=== PATIENT | male | born 1945 | race African-American/Black ===

== ENCOUNTER 2022-05-16 10:18 | Inpatient (IN) | payer MEDICARE, MEDICAID ==
[~2022-05-16] VITALS: Ht 167.6 cm; Wt 76.2 kg
[~2022-05-16 10:18] MED LIST: BICA50TA48 PO; FINA5TAB11 PO; ONDA8TAB13 MT; TAMS-11 MT
[2022-05-16] MEDS ORDERED: SODIUM CHLORIDE 0.9% 1,000 ML IV ONE (10:45)
[2022-05-16 11:18] LABS: BASOPHILS % 1.4 % (0.0-2.0); EOSINOPHILS % 0.6 % (0.0-5.0); LYMPHOCYTES % 36.3 % (20.0-50.0); MEAN CORPUSCULAR HEMOGLOBIN 25.4 pg (28.0-32.0); MEAN CORPUSCULAR VOLUME 81.9 fL (80.0-94.0); MEAN PLATELET VOLUME 7.6 fl (7.4-10.4); NEUTROPHILS % 54.7 % (40.0-76.0); PLATELET 224 x1000/uL (130-400); RED BLOOD CELL COUNT 2.17 mill/uL (4.7-6.1); RED CELL DISTRIBUTION WIDTH 23.2 % (11.6-14.6)
[2022-05-16 11:25] LABS: HEMOGLOBIN. 5.5 g/dL (14.0-18.0)
[2022-05-16 11:26] LABS: HEMATOCRIT. 17.8 % (42.0-52.0)
[2022-05-16 11:29] LABS: CHLORIDE 112 mEq/L (98-107)
[2022-05-16 12:25] LABS: PLATELET ESTIMATE NORMAL
[2022-05-16] MEDS ORDERED: ONDANSETRON HCL 4MG/2ML INJ IV PRN (17:45)
[2022-05-16 17:50] VITALS: BP 128/59
[2022-05-16 20:00] VITALS: BP 125/59
[2022-05-16] MEDS ORDERED: NALOXONE HCL 0.4MG/ML VIAL IV PRN (21:00)
[2022-05-16] MEDS: HYDROCODONE/ACETAMINOPHEN 10/325MG TABLET PO PRN (21:23)
[2022-05-16] MEDS: ACETAMINOPHEN 325MG TABLET PO PRN (23:31)
[2022-05-16 23:55] VITALS: BP 119/57
[2022-05-17] VITALS (10 sets, daily range): BP systolic 121–151; BP diastolic 55–76
[2022-05-17] MEDS ORDERED: METO-396 PO (01:45)
[2022-05-17] MEDS ORDERED: [UNRECOGNIZED DRUG - CODE] PO (01:45)
[2022-05-17] MEDS ORDERED: PNEUMOCOCCAL 23-VAL P-SAC VAC 0.5 ML IM ONE (02:15)
[2022-05-17] MEDS: HYDROCODONE/ACETAMINOPHEN 10/325MG TABLET PO PRN ×2 (03:30→21:27)
[2022-05-17 07:11] LABS: CLARITY URINE TURBID (CLEAR); COLOR URINE RED (YELLOW); KETONES URINE NEGATIVE (NEGATIVE); LEUKOCYTE ESTERASE URINE 3+ (NEGATIVE); NITRITE URINE POSITIVE (NEGATIVE); OCCULT BLOOD URINE 1+ (NEGATIVE); PROTEIN URINE 1+ (NEGATIVE); SPECIFIC GRAVITY URINE 1.031 (1.005-1.030); UROBILINOGEN URINE 0.2 E.U./dL (0.2-1.0)
[2022-05-17 07:21] LABS: CHLORIDE 111 mEq/L (98-107)
[2022-05-17] MEDS: SODIUM CHLORIDE 0.45% 1,000 ML IV SCH ×2 (07:29→20:40)
[2022-05-17 07:39] LABS: BASOPHILS % 0.9 % (0.0-2.0); EOSINOPHILS % 1.1 % (0.0-5.0); HEMATOCRIT. 24.3 % (42.0-52.0); HEMOGLOBIN. 8.1 g/dL (14.0-18.0); MEAN CORPUSCULAR HEMOGLOBIN 27.3 pg (28.0-32.0); MEAN CORPUSCULAR VOLUME 81.8 fL (80.0-94.0); MEAN PLATELET VOLUME 7.7 fl (7.4-10.4); MONOCYTES % 7.7 % (2.0-8.0); NEUTROPHILS % 56.3 % (40.0-76.0); PLATELET 168 x1000/uL (130-400); RED BLOOD CELL COUNT 2.97 mill/uL (4.7-6.1)
[2022-05-17] MEDS: CEFTRIAXONE 1,000 MG in DEXTROSE 5% WATER 50 ML IV SCH (14:57)
[2022-05-17] MEDS: FINASTERIDE 5MG TABLET PO SCH (14:57)
[2022-05-17] MEDS: TAMSULOSIN HCL 0.4MG SR CAPSULE PO SCH (14:58)
[2022-05-17] MEDS ORDERED: IOHEXOL-300 100 ML BOTTLE ONE (20:20)
[2022-05-18] VITALS: BP 130/70
[2022-05-18 04:00] VITALS: BP 127/74
[2022-05-18 07:26] LABS: BASOPHILS % 1.1 % (0.0-2.0); EOSINOPHILS % 1.5 % (0.0-5.0); HEMATOCRIT. 23.2 % (42.0-52.0); HEMOGLOBIN. 7.7 g/dL (14.0-18.0); LYMPHOCYTES % 27.2 % (20.0-50.0); MEAN CORPUSCULAR HEMOGLOBIN 27.1 pg (28.0-32.0); MEAN CORPUSCULAR VOLUME 81.4 fL (80.0-94.0); MEAN PLATELET VOLUME 7.3 fl (7.4-10.4); MONOCYTES % 7.2 % (2.0-8.0); PLATELET 148 x1000/uL (130-400); RED BLOOD CELL COUNT 2.86 mill/uL (4.7-6.1); RED CELL DISTRIBUTION WIDTH 19.1 % (11.6-14.6)
[2022-05-18 07:39] LABS: CHLORIDE 110 mEq/L (98-107)
[2022-05-18 08:00] VITALS: BP 125/68
[2022-05-18] MEDS ORDERED: LACTULOSE 20G/30ML UDC PO SCH (08:00)
[2022-05-18] MEDS: DOCUSATE SODIUM 250MG CAPSULE PO SCH (08:40)
[2022-05-18] MEDS: TAMSULOSIN HCL 0.4MG SR CAPSULE PO SCH (08:41)
[2022-05-18] MEDS: FINASTERIDE 5MG TABLET PO SCH (08:41)
[2022-05-18] MEDS: HYDROCODONE/ACETAMINOPHEN 10/325MG TABLET PO PRN ×2 (08:41→20:21)
[2022-05-18] MEDS: SODIUM CHLORIDE 0.45% 1,000 ML IV SCH ×2 (08:42→23:20)
[2022-05-18] MEDS: ACETAMINOPHEN 325MG TABLET PO PRN (11:54)
[2022-05-18 12:00] VITALS: BP 108/53
[2022-05-18] MEDS: CEFTRIAXONE 1,000 MG in DEXTROSE 5% WATER 50 ML IV SCH (12:30)
[2022-05-18 16:00] VITALS: BP 138/67
[2022-05-18 20:00] VITALS: BP 117/54
[2022-05-19] VITALS: BP 126/62
[2022-05-19 04:00] VITALS: BP 124/70
[2022-05-19] MEDS: HYDROCODONE/ACETAMINOPHEN 10/325MG TABLET PO PRN ×2 (04:15→16:37)
[2022-05-19 07:33] LABS: HEMATOCRIT. 21.4 % (42.0-52.0); HEMOGLOBIN. 7.2 g/dL (14.0-18.0); MEAN CORPUSCULAR HEMOGLOBIN 27.2 pg (28.0-32.0); MEAN CORPUSCULAR VOLUME 80.8 fL (80.0-94.0); MEAN PLATELET VOLUME 7.8 fl (7.4-10.4); PLATELET 152 x1000/uL (130-400); RED BLOOD CELL COUNT 2.65 mill/uL (4.7-6.1); RED CELL DISTRIBUTION WIDTH 18.8 % (11.6-14.6)
[2022-05-19 08:00] VITALS: BP 128/58
[2022-05-19 08:12] LABS: CHLORIDE 108 mEq/L (98-107)
[2022-05-19] MEDS: FINASTERIDE 5MG TABLET PO SCH (09:11)
[2022-05-19] MEDS: TAMSULOSIN HCL 0.4MG SR CAPSULE PO SCH (09:11)
[2022-05-19] MEDS: DOCUSATE SODIUM 250MG CAPSULE PO SCH (09:12)
[2022-05-19 12:00] VITALS: BP 110/55
[2022-05-19] MEDS: CEFTRIAXONE 1,000 MG in DEXTROSE 5% WATER 50 ML IV SCH (13:14)
[2022-05-19] MEDS: SODIUM CHLORIDE 0.45% 1,000 ML IV SCH (13:15)
[2022-05-19 16:00] VITALS: BP 113/60
[2022-05-19 16:58] LABS: NUCLEATED RED BLOOD CELLS 3 /100 WBC; PLATELET ESTIMATE NORMAL
[2022-05-19 20:00] VITALS: BP 110/48
[2022-05-20] VITALS: BP 97/44
[2022-05-20 04:00] VITALS: BP 125/65
[2022-05-20] MEDS: HYDROCODONE/ACETAMINOPHEN 10/325MG TABLET PO PRN ×3 (04:06→22:34)
[2022-05-20] MEDS: SODIUM CHLORIDE 0.45% 1,000 ML IV SCH ×3 (04:07→22:33)
[2022-05-20 07:02] LABS: EOSINOPHILS % 2.7 % (0.0-5.0); HEMATOCRIT. 21.4 % (42.0-52.0); HEMOGLOBIN. 7.2 g/dL (14.0-18.0); LYMPHOCYTES % 24.4 % (20.0-50.0); MEAN CORPUSCULAR HEMOGLOBIN 27.4 pg (28.0-32.0); MEAN CORPUSCULAR VOLUME 80.8 fL (80.0-94.0); MEAN PLATELET VOLUME 7.7 fl (7.4-10.4); MONOCYTES % 8.3 % (2.0-8.0); NEUTROPHILS % 63.6 % (40.0-76.0); PLATELET 157 x1000/uL (130-400); RED BLOOD CELL COUNT 2.64 mill/uL (4.7-6.1); RED CELL DISTRIBUTION WIDTH 19.2 % (11.6-14.6)
[2022-05-20 07:08] LABS: CHLORIDE 110 mEq/L (98-107)
[2022-05-20 08:00] VITALS: BP 136/65
[2022-05-20] MEDS: TAMSULOSIN HCL 0.4MG SR CAPSULE PO SCH (08:12)
[2022-05-20] MEDS: FINASTERIDE 5MG TABLET PO SCH (08:12)
[2022-05-20] MEDS: DOCUSATE SODIUM 250MG CAPSULE PO SCH (08:12)
[2022-05-20] MEDS ORDERED: PROPOFOL 200MG/20ML VIAL IV ONE (12:38)
[2022-05-20] MEDS ORDERED: DEXAMETHASONE 4MG/ML 1ML VIAL ONE (12:39)
[2022-05-20] MEDS ORDERED: ONDANSETRON HCL 4MG/2ML INJ ONE (12:39)
[2022-05-20] MEDS ORDERED: METOCLOPRAMIDE HCL 10MG/2ML VIAL ONE (12:39)
[2022-05-20] MEDS ORDERED: MIDAZOLAM HCL 2 MG/2 ML VIAL ONE (12:39)
[2022-05-20] MEDS ORDERED: FENTANYL CITRATE/PF 50MCG/ML 2ML VIAL ONE ×2 (12:39→13:29)
[2022-05-20] MEDS: CEFTRIAXONE 1,000 MG in DEXTROSE 5% WATER 50 ML IV SCH (13:30)
[2022-05-20] MEDS ORDERED: CEFAZOLIN SODIUM 1000MG/VIAL ONE (13:47)
[2022-05-20] MEDS ORDERED: ONDANSETRON HCL 4MG/2ML INJ IV PRN (14:00)
[2022-05-20] MEDS ORDERED: FENTANYL CITRATE/PF 50MCG/ML 2ML VIAL IV PRN (14:00)
[2022-05-20 16:52] VITALS: BP 158/72
[2022-05-20 20:00] VITALS: BP 153/76
[2022-05-21] VITALS: BP 156/82
[2022-05-21] MEDS ORDERED: ONDANSETRON HCL 4MG/2ML INJ IV PRN (01:15)
[2022-05-21 04:00] VITALS: BP 155/77
[2022-05-21 08:20] LABS: BASOPHILS % 0.8 % (0.0-2.0); EOSINOPHILS % 0.5 % (0.0-5.0); LYMPHOCYTES % 12.1 % (20.0-50.0); MEAN CORPUSCULAR HEMOGLOBIN 26.6 pg (28.0-32.0); MEAN CORPUSCULAR VOLUME 80.5 fL (80.0-94.0); MEAN PLATELET VOLUME 7.8 fl (7.4-10.4); MONOCYTES % 6.8 % (2.0-8.0); NEUTROPHILS % 79.8 % (40.0-76.0); PLATELET 188 x1000/uL (130-400); RED BLOOD CELL COUNT 3.15 mill/uL (4.7-6.1); RED CELL DISTRIBUTION WIDTH 19.6 % (11.6-14.6)
[2022-05-21 08:29] LABS: HEMATOCRIT. 25.3 % (42.0-52.0); HEMOGLOBIN. 8.4 g/dL (14.0-18.0)
[2022-05-21 08:30] VITALS: BP 115/70
[2022-05-21 08:47] LABS: CHLORIDE 104 mEq/L (98-107)
[2022-05-21] MEDS: DOCUSATE SODIUM 250MG CAPSULE PO SCH (10:28)
[2022-05-21] MEDS: HYDROCODONE/ACETAMINOPHEN 10/325MG TABLET PO PRN ×2 (10:29→18:15)
[2022-05-21] MEDS: TAMSULOSIN HCL 0.4MG SR CAPSULE PO SCH (10:32)
[2022-05-21] MEDS: FINASTERIDE 5MG TABLET PO SCH (10:33)
[2022-05-21 12:00] VITALS: BP 134/68
[2022-05-21 16:00] VITALS: BP 128/68
[2022-05-21] MEDS: CEFTRIAXONE 1,000 MG in DEXTROSE 5% WATER 50 ML IV SCH (16:01)
[2022-05-21] MEDS ORDERED: LACTULOSE 20G/30ML UDC PO NR (17:15)
[2022-05-21] MEDS: SODIUM CHLORIDE 0.45% 1,000 ML IV SCH (18:00)
[2022-05-21 20:00] VITALS: BP 92/54
[2022-05-21] MEDS: METOPROLOL TARTRATE 25MG TABLET PO SCH (21:00)
[2022-05-22] VITALS: BP 104/60
[2022-05-22 04:00] VITALS: BP 123/50
[2022-05-22 08:00] VITALS: BP 118/54
[2022-05-22] MEDS: FINASTERIDE 5MG TABLET PO SCH (09:17)
[2022-05-22] MEDS: ACETAMINOPHEN 325MG TABLET PO PRN (09:18)
[2022-05-22] MEDS: TAMSULOSIN HCL 0.4MG SR CAPSULE PO SCH (09:18)
[2022-05-22] MEDS: DOCUSATE SODIUM 250MG CAPSULE PO SCH (09:18)
[2022-05-22] MEDS: METOPROLOL TARTRATE 25MG TABLET PO SCH ×2 (09:19→20:41)
[2022-05-22 12:00] VITALS: BP 122/52
[2022-05-22] MEDS: BICALUTAMIDE 50 MG TABLET PO SCH (13:16)
[2022-05-22] MEDS: LEVOFLOXACIN 500MG TABLET PO SCH (13:16)
[2022-05-22] MEDS: CEFTRIAXONE 1,000 MG in DEXTROSE 5% WATER 50 ML IV SCH (13:17)
[2022-05-22 20:00] VITALS: BP 107/56
[2022-05-22] MEDS: SODIUM CHLORIDE 0.45% 1,000 ML IV SCH (23:39)
[2022-05-22 23:57] VITALS: BP 120/56
[2022-05-23] VITALS (12 sets, daily range): BP systolic 113–133; BP diastolic 50–65
[2022-05-23] MEDS: ACETAMINOPHEN 325MG TABLET PO PRN ×3 (04:49→20:07)
[2022-05-23 06:45] LABS: MEAN CORPUSCULAR HEMOGLOBIN 26.2 pg (28.0-32.0); MEAN CORPUSCULAR VOLUME 80.9 fL (80.0-94.0); MEAN PLATELET VOLUME 7.6 fl (7.4-10.4); PLATELET 181 x1000/uL (130-400); RED BLOOD CELL COUNT 2.57 mill/uL (4.7-6.1)
[2022-05-23 07:50] LABS: HEMATOCRIT. 20.8 % (42.0-52.0); HEMOGLOBIN. 6.7 g/dL (14.0-18.0)
[2022-05-23 08:47] LABS: CHLORIDE 110 mEq/L (98-107)
[2022-05-23] MEDS: DOCUSATE SODIUM 250MG CAPSULE PO SCH (09:32)
[2022-05-23] MEDS: TAMSULOSIN HCL 0.4MG SR CAPSULE PO SCH (09:33)
[2022-05-23] MEDS: BICALUTAMIDE 50 MG TABLET PO SCH (09:33)
[2022-05-23] MEDS: FINASTERIDE 5MG TABLET PO SCH (09:33)
[2022-05-23] MEDS: METOPROLOL TARTRATE 25MG TABLET PO SCH ×2 (09:33→20:07)
[2022-05-23] MEDS ORDERED: NALOXONE HCL 0.4MG/ML VIAL IV PRN (13:00)
[2022-05-23] MEDS ORDERED: HYDROCODONE/ACETAMINOPHEN 5/325MG TABLET PO PRN (13:00)
[2022-05-23] MEDS: LEVOFLOXACIN 500MG TABLET PO SCH (13:21)
[2022-05-23 16:59] LABS: PLATELET ESTIMATE NORMAL
[2022-05-23] MEDS: SODIUM CHLORIDE 0.45% 1,000 ML IV SCH (20:07)
[2022-05-24] VITALS (7 sets, daily range): BP systolic 112–140; BP diastolic 45–64
[2022-05-24 03:28] LABS: CHLORIDE 111 mEq/L (98-107)
[2022-05-24 03:33] LABS: BASOPHILS % 0.8 % (0.0-2.0); EOSINOPHILS % 3.7 % (0.0-5.0); HEMATOCRIT. 24.8 % (42.0-52.0); HEMOGLOBIN. 8.4 g/dL (14.0-18.0); LYMPHOCYTES % 27.9 % (20.0-50.0); MEAN CORPUSCULAR HEMOGLOBIN 27.9 pg (28.0-32.0); MEAN CORPUSCULAR VOLUME 82.6 fL (80.0-94.0); MEAN PLATELET VOLUME 7.4 fl (7.4-10.4); MONOCYTES % 6.2 % (2.0-8.0); NEUTROPHILS % 61.4 % (40.0-76.0); PLATELET 178 x1000/uL (130-400); RED CELL DISTRIBUTION WIDTH 19.2 % (11.6-14.6)
[2022-05-24] MEDS ORDERED: POLYETHYLENE GLYCOL 3350 (17GM) 1 DOSE PACK PO SCH (07:00)
[2022-05-24] MEDS: SODIUM CHLORIDE 0.45% 1,000 ML IV SCH (08:30)
[2022-05-24] MEDS: DOCUSATE SODIUM 250MG CAPSULE PO SCH (09:26)
[2022-05-24] MEDS: METOPROLOL TARTRATE 25MG TABLET PO SCH (09:27)
[2022-05-24] MEDS: TAMSULOSIN HCL 0.4MG SR CAPSULE PO SCH (09:27)
[2022-05-24] MEDS: FINASTERIDE 5MG TABLET PO SCH (09:28)
[2022-05-24] MEDS: BICALUTAMIDE 50 MG TABLET PO SCH (09:28)
[2022-05-24] MEDS: LEVOFLOXACIN 500MG TABLET PO SCH (12:32)
[2022-05-24] MEDS ORDERED: HYDR-4009 MT (12:56)
[2022-05-24] MEDS ORDERED: METO25TA6 PO (12:56)
[2022-05-24] MEDS ORDERED: FINA5TAB11 PO (12:56)
[2022-05-24] MEDS ORDERED: BICA50TA48 PO (12:56)
[2022-05-24] MEDS ORDERED: TAMS-11 PO (12:56)
== END 2022-05-24 20:00 | disposition home health service (06) | DRG 715 ==
LOC: ER 10:18 → 6WST 14:04 → EDBEDREQ 14:14 → EDBEDREQTM 14:14 → ENRESERV 15:04
PROVIDERS: ADMIT Internal Medicine; ATTEND Internal Medicine
PROC: 30233N1 Transfusion of Nonautologous Red Blood Cells into Peripheral Vein, Percutaneous Approach (ICD-10-PCS; principal; 2022-05-16)
PROC: F13 Physical Rehabilitation and Diagnostic Audiology, Diagnostic Audiology, Hearing Assessment (ICD-10-PCS; 2022-05-20)
PROC: 0TCB8ZZ Extirpation of Matter from Bladder, Via Natural or Artificial Opening Endoscopic (ICD-10-PCS; 2022-05-20)
PROC: 0W3R8ZZ Control Bleeding in Genitourinary Tract, Via Natural or Artificial Opening Endoscopic (ICD-10-PCS; 2022-05-20)
DX: C61 Malignant neoplasm of prostate (principal); E44.1 Mild protein-calorie malnutrition; N39.0 Urinary tract infection, site not specified; G90.8 Other disorders of autonomic nervous system; R31.0 Gross hematuria; Z20.822 Contact with and (suspected) exposure to COVID-19; D64.9 Anemia, unspecified; N40.1 Benign prostatic hyperplasia with lower urinary tract symptoms; I10 Essential (primary) hypertension; E87.8 Other disorders of electrolyte and fluid balance, not elsewhere classified; Z68.27 Body mass index [BMI] 27.0-27.9, adult; Z85.46 Personal history of malignant neoplasm of prostate; Z90.79 Acquired absence of other genital organ(s)
CPT/HCPCS: 36415; 71045; 72131; 74178; 80048; 80053; 81003; 82962; 84153; 84484; 85014; 85018; 85025; 86850; 86900; 86920; 87426; 90732; 93005; 97161; 97165; 99291; C9803; J0690; J0696; J1100; J2250; J2405; J2704; J2765; J3010; J7030; J7060; J7120; P9016; Q9967; G0103

== ENCOUNTER 2022-10-04 11:29 | Inpatient (IN) | payer MEDICARE, MEDICAID ==
[~2022-10-04] VITALS: Ht 165.1 cm; Wt 66.7 kg
[~2022-10-04 11:29] MED LIST changes: +HYDR-4009 MT; +LEVO-65 MT; +METO25TA6 PO; +METR-167 MT; -ONDA8TAB13 MT; +[UNRECOGNIZED DRUG - CODE] PO
[2022-10-04] MEDS ORDERED: SODIUM CHLORIDE 0.9% 1,000 ML IV ONE (12:30)
[2022-10-04 13:09] LABS: BASOPHILS % 1.3 % (0.0-2.0); EOSINOPHILS % 0.5 % (0.0-5.0); HEMATOCRIT. 30.1 % (42.0-52.0); HEMOGLOBIN. 9.8 g/dL (14.0-18.0); LYMPHOCYTES % 32.9 % (20.0-50.0); MEAN CORPUSCULAR HEMOGLOBIN 26.8 pg (28.0-32.0); MEAN CORPUSCULAR VOLUME 82.3 fL (80.0-94.0); MONOCYTES % 5.8 % (2.0-8.0); NEUTROPHILS % 59.5 % (40.0-76.0); RED BLOOD CELL COUNT 3.66 mill/uL (4.7-6.1); RED CELL DISTRIBUTION WIDTH 24.8 % (11.6-14.6)
[2022-10-04 13:20] LABS: CHLORIDE 103 mEq/L (98-107)
[2022-10-04 13:30] LABS: PLATELET 265 x1000/uL (130-400)
[2022-10-04] MEDS ORDERED: IOHEXOL-300 100 ML BOTTLE ONE (18:11)
[2022-10-04 19:04] LABS: CLARITY URINE TURBID (CLEAR); COLOR URINE BLOODY (YELLOW); KETONES URINE TRACE (NEGATIVE); PROTEIN URINE TRACE (NEGATIVE); SPECIFIC GRAVITY URINE 1.034 (1.005-1.030)
[2022-10-04 19:05] LABS: LEUKOCYTE ESTERASE URINE 3+ (NEGATIVE); NITRITE URINE POSITIVE (NEGATIVE); OCCULT BLOOD URINE 4+ (NEGATIVE); UROBILINOGEN URINE 0.2 E.U./dL (0.2-1.0)
[2022-10-04] MEDS ORDERED: MORPHINE SULFATE 4 MG/ML CPJ (NOT FOR IM USE) IV ONE (20:15)
[2022-10-05] MEDS ORDERED: IPRATROPIUM/ALBUTEROL 0.5-3(2.5)MG/3ML NEB HHN PRN
[2022-10-05] MEDS ORDERED: LORAZEPAM 0.5MG TABLET PO PRN
[2022-10-05] MEDS ORDERED: SODIUM CHLORIDE 0.9% 500 ML IV ONE
[2022-10-05] MEDS ORDERED: ONDANSETRON HCL 4MG/2ML INJ IV PRN
[2022-10-05] MEDS ORDERED: ACETAMINOPHEN 325MG TABLET PO PRN
[2022-10-05] MEDS ORDERED: GUAIFENESIN 200MG/10ML SUGAR FREE UDC PO PRN
[2022-10-05] MEDS: SODIUM CHLORIDE 0.9% 1,000 ML IV SCH ×2 (00:47→16:57)
[2022-10-05] MEDS ORDERED: CEFTRIAXONE 1 G PREMIX 50 ML IV SCH (01:00)
[2022-10-05 02:05] VITALS: BP 140/38
[2022-10-05 04:00] VITALS: BP 114/54
[2022-10-05 07:17] LABS: CHLORIDE 106 mEq/L (98-107)
[2022-10-05 08:00] VITALS: BP 118/50
[2022-10-05 10:13] LABS: HEMATOCRIT. 28.1 % (42.0-52.0); HEMOGLOBIN. 9.3 g/dL (14.0-18.0); MEAN CORPUSCULAR HEMOGLOBIN 26.6 pg (28.0-32.0); MEAN CORPUSCULAR VOLUME 80.5 fL (80.0-94.0); MEAN PLATELET VOLUME 6.6 fl (7.4-10.4); PLATELET 234 x1000/uL (130-400)
[2022-10-05 11:53] VITALS: BP 108/48
[2022-10-05 12:59] LABS: NUCLEATED RED BLOOD CELLS 1 /100 WBC
[2022-10-05 13:00] LABS: PLATELET ESTIMATE NORMAL
[2022-10-05] MEDS ORDERED: NALOXONE HCL 0.4MG/ML VIAL IV PRN (15:30)
[2022-10-05 15:46] VITALS: BP 115/48
[2022-10-05 16:17] LABS: TOTAL IRON BINDING CAPACITY 405 ug/dL (250-450)
[2022-10-05 16:44] LABS: VITAMIN B12 SERUM 405 pg/mL (211-911)
[2022-10-05] MEDS: PANTOPRAZOLE SODIUM 40 MG/VIAL IV SCH (16:45)
[2022-10-05] MEDS: HYDROCORTISONE ACETATE 25MG SUPP PR SCH ×2 (16:46→22:13)
[2022-10-05] MEDS: DOCUSATE SODIUM 250MG CAPSULE PO SCH (16:46)
[2022-10-05] MEDS: POLYETHYLENE GLYCOL 3350 (17GM) 1 DOSE PACK PO SCH (16:46)
[2022-10-05 17:49] LABS: FERRITIN 70 ng/mL (22-322)
[2022-10-05 20:00] VITALS: BP 113/49
[2022-10-05] MEDS ORDERED: HEMORRHOIDAL SUPP PR SCH (21:00)
[2022-10-05] MEDS: ACETAMINOPHEN 325MG TABLET PO PRN (22:14)
[2022-10-05] MEDS: HYDROCODONE/ACETAMINOPHEN 5/325MG TABLET PO PRN (22:20)
[2022-10-06] MEDS: ACETAMINOPHEN 325MG TABLET PO PRN (02:15)
[2022-10-06] MEDS: PANTOPRAZOLE SODIUM 40 MG/VIAL IV SCH ×2 (02:16→17:11)
[2022-10-06] MEDS: CEFTRIAXONE 1,000 MG in DEXTROSE 5% WATER 50 ML IV SCH (02:28)
[2022-10-06 06:08] LABS: BASOPHILS % 0.9 % (0.0-2.0); EOSINOPHILS % 1.1 % (0.0-5.0); HEMATOCRIT. 24.3 % (42.0-52.0); HEMOGLOBIN. 8.1 g/dL (14.0-18.0); LYMPHOCYTES % 24.8 % (20.0-50.0); MEAN CORPUSCULAR HEMOGLOBIN 27.2 pg (28.0-32.0); MEAN CORPUSCULAR VOLUME 81.4 fL (80.0-94.0); MEAN PLATELET VOLUME 6.9 fl (7.4-10.4); MONOCYTES % 8.8 % (2.0-8.0); NEUTROPHILS % 64.4 % (40.0-76.0); PLATELET 196 x1000/uL (130-400); RED BLOOD CELL COUNT 2.98 mill/uL (4.7-6.1); RED CELL DISTRIBUTION WIDTH 23.9 % (11.6-14.6)
[2022-10-06 06:17] LABS: CHLORIDE 108 mEq/L (98-107)
[2022-10-06 08:00] VITALS: BP 98/49
[2022-10-06] MEDS: POLYETHYLENE GLYCOL 3350 (17GM) 1 DOSE PACK PO SCH (08:46)
[2022-10-06] MEDS: DOCUSATE SODIUM 250MG CAPSULE PO SCH ×2 (08:47→17:11)
[2022-10-06] MEDS: HYDROCORTISONE ACETATE 25MG SUPP PR SCH ×2 (08:47→22:34)
[2022-10-06 11:26] LABS: CARCINO EMBRYONIC ANTIGEN 5.8 ng/ml
[2022-10-06 11:51] LABS: PROSTRATE SPECIFIC AG TOTAL 1544.53 ng/mL (0.0-4.0)
[2022-10-06 12:00] VITALS: BP 117/53
[2022-10-06] MEDS: SODIUM CHLORIDE 0.9% 1,000 ML IV SCH (12:46)
[2022-10-06 16:00] VITALS: BP 108/48
[2022-10-06 20:00] VITALS: BP 123/55
[2022-10-06] MEDS: HYDROCODONE/ACETAMINOPHEN 5/325MG TABLET PO PRN (22:34)
[2022-10-07] VITALS: BP 127/58
[2022-10-07] MEDS: CEFTRIAXONE 1,000 MG in DEXTROSE 5% WATER 50 ML IV SCH (02:27)
[2022-10-07] MEDS: PANTOPRAZOLE SODIUM 40 MG/VIAL IV SCH ×2 (02:28→16:17)
[2022-10-07] MEDS: SODIUM CHLORIDE 0.9% 1,000 ML IV SCH ×2 (02:30→18:40)
[2022-10-07 04:00] VITALS: BP 128/67
[2022-10-07 06:36] LABS: BASOPHILS % 0.6 % (0.0-2.0); EOSINOPHILS % 1.5 % (0.0-5.0); HEMATOCRIT. 22.8 % (42.0-52.0); HEMOGLOBIN. 7.6 g/dL (14.0-18.0); LYMPHOCYTES % 25.4 % (20.0-50.0); MEAN CORPUSCULAR HEMOGLOBIN 26.8 pg (28.0-32.0); MEAN CORPUSCULAR VOLUME 80.2 fL (80.0-94.0); MEAN PLATELET VOLUME 6.7 fl (7.4-10.4); MONOCYTES % 8.3 % (2.0-8.0); NEUTROPHILS % 64.2 % (40.0-76.0); PLATELET 198 x1000/uL (130-400); RED BLOOD CELL COUNT 2.85 mill/uL (4.7-6.1); RED CELL DISTRIBUTION WIDTH 23.9 % (11.6-14.6)
[2022-10-07 06:51] LABS: CHLORIDE 108 mEq/L (98-107)
[2022-10-07 08:00] VITALS: BP 124/55
[2022-10-07] MEDS: HYDROCORTISONE ACETATE 25MG SUPP PR SCH ×2 (09:04→21:58)
[2022-10-07] MEDS: DOCUSATE SODIUM 250MG CAPSULE PO SCH ×2 (09:04→16:17)
[2022-10-07] MEDS: POLYETHYLENE GLYCOL 3350 (17GM) 1 DOSE PACK PO SCH (09:04)
[2022-10-07 12:00] VITALS: BP 109/54
[2022-10-07] MEDS: BICALUTAMIDE 50 MG TABLET PO SCH (12:43)
[2022-10-07 16:00] VITALS: BP 123/57
[2022-10-07] MEDS ORDERED: ALBUTEROL (0.083%) 2.5MG/3ML NEB HHN PRN (16:45)
[2022-10-07] MEDS ORDERED: IPRATROPIUM BROMIDE (0.02%) 0.5MG/2.5ML NEB HHN PRN (16:45)
[2022-10-07 20:00] VITALS: BP 113/54
[2022-10-08] VITALS: BP 111/57
[2022-10-08] MEDS: CEFTRIAXONE 1,000 MG in DEXTROSE 5% WATER 50 ML IV SCH (01:55)
[2022-10-08] MEDS: PANTOPRAZOLE SODIUM 40 MG/VIAL IV SCH ×2 (02:17→15:15)
[2022-10-08 04:00] VITALS: BP 129/58
[2022-10-08 04:55] LABS: CHLORIDE 108 mEq/L (98-107)
[2022-10-08 05:29] LABS: BASOPHILS % 0.7 % (0.0-2.0); EOSINOPHILS % 2.3 % (0.0-5.0); HEMATOCRIT. 23.9 % (42.0-52.0); HEMOGLOBIN. 7.9 g/dL (14.0-18.0); LYMPHOCYTES % 30.5 % (20.0-50.0); MEAN CORPUSCULAR HEMOGLOBIN 26.6 pg (28.0-32.0); MEAN CORPUSCULAR VOLUME 80.3 fL (80.0-94.0); MEAN PLATELET VOLUME 7.2 fl (7.4-10.4); MONOCYTES % 8.7 % (2.0-8.0); NEUTROPHILS % 57.8 % (40.0-76.0); PLATELET 202 x1000/uL (130-400); RED BLOOD CELL COUNT 2.98 mill/uL (4.7-6.1); RED CELL DISTRIBUTION WIDTH 23.8 % (11.6-14.6)
[2022-10-08 08:00] VITALS: BP 117/53
[2022-10-08] MEDS: HYDROCORTISONE ACETATE 25MG SUPP PR SCH ×2 (09:00→21:00)
[2022-10-08] MEDS: POLYETHYLENE GLYCOL 3350 (17GM) 1 DOSE PACK PO SCH (09:00)
[2022-10-08] MEDS: BICALUTAMIDE 50 MG TABLET PO SCH (09:42)
[2022-10-08] MEDS: DOCUSATE SODIUM 250MG CAPSULE PO SCH ×2 (09:57→17:00)
[2022-10-08 12:22] VITALS: BP 124/58
[2022-10-08 16:00] VITALS: BP 113/56
[2022-10-08] MEDS ORDERED: SORBITOL 70% SOLN 30ML PO NR ×2 (16:00→20:00)
[2022-10-08] MEDS ORDERED: METOCLOPRAMIDE HCL 10MG/2ML VIAL IV NR (16:30)
[2022-10-08] MEDS ORDERED: BISACODYL 5MG TABLET PO NR ×2 (16:30→20:30)
[2022-10-08 20:00] VITALS: BP 110/60
[2022-10-08] MEDS: SODIUM CHLORIDE 0.9% 1,000 ML IV SCH (21:33)
[2022-10-09] VITALS: BP 125/63
[2022-10-09] MEDS: SODIUM CHLORIDE 0.9% 1,000 ML IV SCH ×2 (02:00→20:06)
[2022-10-09] MEDS: CEFTRIAXONE 1,000 MG in DEXTROSE 5% WATER 50 ML IV SCH (02:29)
[2022-10-09] MEDS: PANTOPRAZOLE SODIUM 40 MG/VIAL IV SCH ×2 (02:30→18:27)
[2022-10-09 04:00] VITALS: BP 116/53
[2022-10-09 08:00] VITALS: BP 91/52
[2022-10-09 08:11] LABS: BASOPHILS % 0.9 % (0.0-2.0); EOSINOPHILS % 1.2 % (0.0-5.0); HEMATOCRIT. 23.6 % (42.0-52.0); HEMOGLOBIN. 7.7 g/dL (14.0-18.0); LYMPHOCYTES % 28.6 % (20.0-50.0); MEAN CORPUSCULAR HEMOGLOBIN 26.4 pg (28.0-32.0); MEAN CORPUSCULAR VOLUME 81.2 fL (80.0-94.0); MONOCYTES % 8.1 % (2.0-8.0); NEUTROPHILS % 61.2 % (40.0-76.0); PLATELET 203 x1000/uL (130-400); RED BLOOD CELL COUNT 2.91 mill/uL (4.7-6.1); RED CELL DISTRIBUTION WIDTH 23.8 % (11.6-14.6)
[2022-10-09 08:19] LABS: CHLORIDE 110 mEq/L (98-107)
[2022-10-09] MEDS: HYDROCORTISONE ACETATE 25MG SUPP PR SCH ×2 (09:00→21:00)
[2022-10-09] MEDS: BICALUTAMIDE 50 MG TABLET PO SCH (09:08)
[2022-10-09] MEDS: DOCUSATE SODIUM 250MG CAPSULE PO SCH ×2 (09:08→18:27)
[2022-10-09 12:00] VITALS: BP 111/52
[2022-10-09 15:57] VITALS: BP 110/52
[2022-10-09] MEDS: POLYETHYLENE GLYCOL 3350 (17GM) 1 DOSE PACK PO SCH (18:27)
[2022-10-09 20:00] VITALS: BP 122/57
[2022-10-10] VITALS: BP 120/58
[2022-10-10] MEDS: PANTOPRAZOLE SODIUM 40 MG/VIAL IV SCH ×2 (02:40→14:09)
[2022-10-10] MEDS: CEFTRIAXONE 1,000 MG in DEXTROSE 5% WATER 50 ML IV SCH (02:40)
[2022-10-10 04:00] VITALS: BP 120/54
[2022-10-10 08:00] VITALS: BP 114/53
[2022-10-10] MEDS: POLYETHYLENE GLYCOL 3350 (17GM) 1 DOSE PACK PO SCH (09:00)
[2022-10-10] MEDS: BICALUTAMIDE 50 MG TABLET PO SCH (09:56)
[2022-10-10] MEDS: HYDROCORTISONE ACETATE 25MG SUPP PR SCH ×2 (09:56→22:47)
[2022-10-10] MEDS: DOCUSATE SODIUM 250MG CAPSULE PO SCH ×2 (09:56→17:00)
[2022-10-10 12:00] VITALS: BP 122/52
[2022-10-10] MEDS: SODIUM CHLORIDE 0.9% 1,000 ML IV SCH (12:42)
[2022-10-10] MEDS: ACETAMINOPHEN 325MG TABLET PO PRN (15:26)
[2022-10-10 16:06] VITALS: BP 111/59
[2022-10-10 20:00] VITALS: BP 115/54
[2022-10-11] VITALS: BP 120/54
[2022-10-11 04:00] VITALS: BP 120/50
[2022-10-11] MEDS: PANTOPRAZOLE SODIUM 40 MG/VIAL IV SCH ×2 (04:05→17:22)
[2022-10-11] MEDS: SODIUM CHLORIDE 0.9% 1,000 ML IV SCH ×2 (06:23→22:51)
[2022-10-11 06:42] LABS: BASOPHILS % 0.9 % (0.0-2.0); EOSINOPHILS % 2.3 % (0.0-5.0); HEMATOCRIT. 23.4 % (42.0-52.0); HEMOGLOBIN. 7.6 g/dL (14.0-18.0); LYMPHOCYTES % 26.8 % (20.0-50.0); MEAN CORPUSCULAR HEMOGLOBIN 27.1 pg (28.0-32.0); MEAN CORPUSCULAR VOLUME 82.9 fL (80.0-94.0); MEAN PLATELET VOLUME 7.1 fl (7.4-10.4); MONOCYTES % 9.7 % (2.0-8.0); NEUTROPHILS % 60.3 % (40.0-76.0); PLATELET 217 x1000/uL (130-400); RED BLOOD CELL COUNT 2.82 mill/uL (4.7-6.1); RED CELL DISTRIBUTION WIDTH 23.7 % (11.6-14.6)
[2022-10-11 08:00] VITALS: BP 119/50
[2022-10-11] MEDS: HYDROCORTISONE ACETATE 25MG SUPP PR SCH ×2 (09:19→22:50)
[2022-10-11] MEDS: DOCUSATE SODIUM 250MG CAPSULE PO SCH ×2 (09:21→17:23)
[2022-10-11] MEDS: BICALUTAMIDE 50 MG TABLET PO SCH (09:21)
[2022-10-11] MEDS: POLYETHYLENE GLYCOL 3350 (17GM) 1 DOSE PACK PO SCH (09:21)
[2022-10-11 12:00] VITALS: BP 113/56
[2022-10-11 15:04] LABS: CHLORIDE 110 mEq/L (98-107)
[2022-10-11 16:00] VITALS: BP 101/53
[2022-10-11] MEDS: FINASTERIDE 5MG TABLET PO SCH (17:24)
[2022-10-11 20:00] VITALS: BP 106/52
[2022-10-12] VITALS: BP 115/43
[2022-10-12] MEDS: PANTOPRAZOLE SODIUM 40 MG/VIAL IV SCH ×2 (03:58→16:07)
[2022-10-12 04:00] VITALS: BP 120/52
[2022-10-12 07:34] LABS: HEMATOCRIT. 22.7 % (42.0-52.0); HEMOGLOBIN. 7.5 g/dL (14.0-18.0); MEAN CORPUSCULAR HEMOGLOBIN 26.6 pg (28.0-32.0); MEAN CORPUSCULAR VOLUME 80.4 fL (80.0-94.0); MEAN PLATELET VOLUME 6.8 fl (7.4-10.4); PLATELET 246 x1000/uL (130-400); RED BLOOD CELL COUNT 2.82 mill/uL (4.7-6.1); RED CELL DISTRIBUTION WIDTH 23.4 % (11.6-14.6)
[2022-10-12 08:00] VITALS: BP 126/55
[2022-10-12] MEDS: FINASTERIDE 5MG TABLET PO SCH (08:32)
[2022-10-12] MEDS: BICALUTAMIDE 50 MG TABLET PO SCH (08:33)
[2022-10-12] MEDS: HYDROCORTISONE ACETATE 25MG SUPP PR SCH ×2 (08:33→20:49)
[2022-10-12] MEDS: DOCUSATE SODIUM 250MG CAPSULE PO SCH ×2 (08:33→17:58)
[2022-10-12] MEDS: POLYETHYLENE GLYCOL 3350 (17GM) 1 DOSE PACK PO SCH (08:33)
[2022-10-12 09:21] LABS: CHLORIDE 109 mEq/L (98-107)
[2022-10-12 12:00] VITALS: BP 123/58
[2022-10-12] MEDS: SODIUM CHLORIDE 0.9% 1,000 ML IV SCH (16:07)
[2022-10-12 16:08] VITALS: BP 113/56
[2022-10-12 16:52] LABS: PLATELET ESTIMATE NORMAL
[2022-10-12 20:00] VITALS: BP_SYST 127; BP_SYST 130; BP_DIAS 49; BP_DIAS 75
[2022-10-13] VITALS: BP 131/56
[2022-10-13 04:00] VITALS: BP 124/58
[2022-10-13] MEDS: PANTOPRAZOLE SODIUM 40 MG/VIAL IV SCH ×2 (04:01→16:28)
[2022-10-13 07:41] LABS: BASOPHILS % 1.1 % (0.0-2.0); EOSINOPHILS % 1.6 % (0.0-5.0); HEMATOCRIT. 21.4 % (42.0-52.0); MEAN CORPUSCULAR VOLUME 80.9 fL (80.0-94.0); MEAN PLATELET VOLUME 7.2 fl (7.4-10.4); MONOCYTES % 9.2 % (2.0-8.0); NEUTROPHILS % 58.1 % (40.0-76.0); PLATELET 250 x1000/uL (130-400); RED BLOOD CELL COUNT 2.65 mill/uL (4.7-6.1); RED CELL DISTRIBUTION WIDTH 23.7 % (11.6-14.6)
[2022-10-13 07:54] LABS: CHLORIDE 109 mEq/L (98-107)
[2022-10-13 07:55] LABS: HEMOGLOBIN. 6.9 g/dL (14.0-18.0)
[2022-10-13 08:00] VITALS: BP 126/53
[2022-10-13] MEDS: HYDROCORTISONE ACETATE 25MG SUPP PR SCH ×2 (09:08→21:24)
[2022-10-13] MEDS: POLYETHYLENE GLYCOL 3350 (17GM) 1 DOSE PACK PO SCH (09:08)
[2022-10-13] MEDS: DOCUSATE SODIUM 250MG CAPSULE PO SCH ×2 (09:08→16:29)
[2022-10-13] MEDS: FINASTERIDE 5MG TABLET PO SCH (09:09)
[2022-10-13] MEDS: BICALUTAMIDE 50 MG TABLET PO SCH (09:09)
[2022-10-13] MEDS: SODIUM CHLORIDE 0.9% 1,000 ML IV SCH (09:14)
[2022-10-13 12:00] VITALS: BP 134/57
[2022-10-13 16:27] VITALS: BP 104/54
[2022-10-13 20:00] VITALS: BP 129/59
[2022-10-14] VITALS (11 sets, daily range): BP systolic 98–143; BP diastolic 48–60
[2022-10-14] MEDS: SODIUM CHLORIDE 0.9% 1,000 ML IV SCH ×2 (00:05→17:20)
[2022-10-14] MEDS: PANTOPRAZOLE SODIUM 40 MG/VIAL IV SCH ×2 (03:10→15:15)
[2022-10-14 06:47] LABS: BASOPHILS % 1.4 % (0.0-2.0); HEMATOCRIT. 21.4 % (42.0-52.0); HEMOGLOBIN. 7.1 g/dL (14.0-18.0); LYMPHOCYTES % 31.8 % (20.0-50.0); MEAN CORPUSCULAR HEMOGLOBIN 26.7 pg (28.0-32.0); MEAN CORPUSCULAR VOLUME 80.6 fL (80.0-94.0); MEAN PLATELET VOLUME 7.6 fl (7.4-10.4); MONOCYTES % 8.8 % (2.0-8.0); PLATELET 290 x1000/uL (130-400); RED BLOOD CELL COUNT 2.66 mill/uL (4.7-6.1); RED CELL DISTRIBUTION WIDTH 23.9 % (11.6-14.6)
[2022-10-14 07:24] LABS: CHLORIDE 111 mEq/L (98-107)
[2022-10-14] MEDS: HYDROCORTISONE ACETATE 25MG SUPP PR SCH ×2 (09:00→21:24)
[2022-10-14] MEDS: DOCUSATE SODIUM 250MG CAPSULE PO SCH ×2 (09:20→17:00)
[2022-10-14] MEDS: FINASTERIDE 5MG TABLET PO SCH (09:20)
[2022-10-14] MEDS: BICALUTAMIDE 50 MG TABLET PO SCH (09:20)
[2022-10-14] MEDS: POLYETHYLENE GLYCOL 3350 (17GM) 1 DOSE PACK PO SCH (09:20)
[2022-10-14] MEDS ORDERED: MAGNESIUM HYDROXIDE 400MG/5ML 30ML UDC PO PRN (12:45)
[2022-10-14] MEDS ORDERED: MAGNESIUM HYDROXIDE 400MG/5ML 30ML UDC PO NR (13:00)
[2022-10-14] MEDS: SENNOSIDES/DOCUSATE SOD 8.6/50MG TABLET PO SCH (21:24)
[2022-10-15] VITALS: BP 99/59
[2022-10-15] MEDS: PANTOPRAZOLE SODIUM 40 MG/VIAL IV SCH ×2 (03:16→16:23)
[2022-10-15 04:00] VITALS: BP 121/70
[2022-10-15 08:00] VITALS: BP 121/58
[2022-10-15 09:00] LABS: BASOPHILS % 1.1 % (0.0-2.0); EOSINOPHILS % 2.3 % (0.0-5.0); HEMATOCRIT. 25.8 % (42.0-52.0); HEMOGLOBIN. 8.5 g/dL (14.0-18.0); LYMPHOCYTES % 27.9 % (20.0-50.0); MEAN CORPUSCULAR HEMOGLOBIN 25.9 pg (28.0-32.0); MEAN CORPUSCULAR VOLUME 78.4 fL (80.0-94.0); MEAN PLATELET VOLUME 7.3 fl (7.4-10.4); MONOCYTES % 7.4 % (2.0-8.0); NEUTROPHILS % 61.3 % (40.0-76.0); PLATELET 310 x1000/uL (130-400); RED BLOOD CELL COUNT 3.29 mill/uL (4.7-6.1); RED CELL DISTRIBUTION WIDTH 21.8 % (11.6-14.6)
[2022-10-15] MEDS: BICALUTAMIDE 50 MG TABLET PO SCH (09:00)
[2022-10-15 09:28] LABS: CHLORIDE 108 mEq/L (98-107)
[2022-10-15] MEDS: HYDROCORTISONE ACETATE 25MG SUPP PR SCH ×2 (09:57→20:41)
[2022-10-15] MEDS: FINASTERIDE 5MG TABLET PO SCH (09:57)
[2022-10-15] MEDS: DOCUSATE SODIUM 250MG CAPSULE PO SCH ×2 (09:57→17:00)
[2022-10-15] MEDS: POLYETHYLENE GLYCOL 3350 (17GM) 1 DOSE PACK PO SCH (09:57)
[2022-10-15 12:00] VITALS: BP 130/63
[2022-10-15] MEDS: SODIUM CHLORIDE 0.9% 1,000 ML IV SCH (14:28)
[2022-10-15 16:00] VITALS: BP_SYST 120; BP_SYST 144; BP_DIAS 53; BP_DIAS 60
[2022-10-15 20:00] VITALS: BP 135/58
[2022-10-15] MEDS: SENNOSIDES/DOCUSATE SOD 8.6/50MG TABLET PO SCH (20:41)
[2022-10-16] VITALS: BP 145/65
[2022-10-16] MEDS: SODIUM CHLORIDE 0.9% 1,000 ML IV SCH ×2 (02:41→18:40)
[2022-10-16 04:00] VITALS: BP 129/61
[2022-10-16] MEDS: PANTOPRAZOLE SODIUM 40 MG/VIAL IV SCH ×2 (05:30→15:07)
[2022-10-16 07:03] LABS: EOSINOPHILS % 2.5 % (0.0-5.0); HEMATOCRIT. 24.9 % (42.0-52.0); HEMOGLOBIN. 8.3 g/dL (14.0-18.0); LYMPHOCYTES % 30.8 % (20.0-50.0); MEAN CORPUSCULAR HEMOGLOBIN 26.1 pg (28.0-32.0); MEAN CORPUSCULAR VOLUME 78.4 fL (80.0-94.0); MEAN PLATELET VOLUME 7.3 fl (7.4-10.4); MONOCYTES % 8.7 % (2.0-8.0); PLATELET 306 x1000/uL (130-400); RED BLOOD CELL COUNT 3.18 mill/uL (4.7-6.1)
[2022-10-16 07:19] LABS: CHLORIDE 110 mEq/L (98-107)
[2022-10-16 08:00] VITALS: BP 131/63
[2022-10-16] MEDS: HYDROCORTISONE ACETATE 25MG SUPP PR SCH ×2 (09:00→20:40)
[2022-10-16] MEDS: DOCUSATE SODIUM 250MG CAPSULE PO SCH ×2 (10:28→18:40)
[2022-10-16] MEDS: POLYETHYLENE GLYCOL 3350 (17GM) 1 DOSE PACK PO SCH (10:28)
[2022-10-16] MEDS: ACETAMINOPHEN 325MG TABLET PO PRN (10:29)
[2022-10-16] MEDS: FINASTERIDE 5MG TABLET PO SCH (10:29)
[2022-10-16] MEDS: BICALUTAMIDE 50 MG TABLET PO SCH (10:30)
[2022-10-16] MEDS ORDERED: POLY17PO3 PO (11:47)
[2022-10-16] MEDS ORDERED: DOCU250C14 PO (11:47)
[2022-10-16] MEDS ORDERED: HYDR25SU11 PR (11:47)
[2022-10-16 12:12] VITALS: BP 122/59
[2022-10-16] MEDS ORDERED: BISACODYL 10MG SUPP PR NR (14:00)
[2022-10-16 16:00] VITALS: BP 129/63
[2022-10-16 20:00] VITALS: BP 131/63
[2022-10-16] MEDS: SENNOSIDES/DOCUSATE SOD 8.6/50MG TABLET PO SCH (20:42)
[2022-10-17 04:00] VITALS: BP 125/59
[2022-10-17] MEDS: PANTOPRAZOLE SODIUM 40 MG/VIAL IV SCH ×2 (04:18→20:00)
[2022-10-17 07:06] LABS: HEMATOCRIT. 24.9 % (42.0-52.0); MEAN CORPUSCULAR HEMOGLOBIN 26.2 pg (28.0-32.0); MEAN CORPUSCULAR VOLUME 81.2 fL (80.0-94.0); MEAN PLATELET VOLUME 7.3 fl (7.4-10.4); PLATELET 264 x1000/uL (130-400); RED BLOOD CELL COUNT 3.07 mill/uL (4.7-6.1); RED CELL DISTRIBUTION WIDTH 22.4 % (11.6-14.6)
[2022-10-17 07:56] LABS: CHLORIDE 110 mEq/L (98-107)
[2022-10-17 08:00] VITALS: BP 146/69
[2022-10-17] MEDS: BICALUTAMIDE 50 MG TABLET PO SCH (09:00)
[2022-10-17] MEDS: POLYETHYLENE GLYCOL 3350 (17GM) 1 DOSE PACK PO SCH (09:00)
[2022-10-17] MEDS: DOCUSATE SODIUM 250MG CAPSULE PO SCH ×2 (09:00→17:00)
[2022-10-17] MEDS: HYDROCORTISONE ACETATE 25MG SUPP PR SCH ×2 (09:00→21:00)
[2022-10-17 10:16] LABS: NUCLEATED RED BLOOD CELLS 5 /100 WBC; PLATELET ESTIMATE NORMAL
[2022-10-17] MEDS: FINASTERIDE 5MG TABLET PO SCH (10:42)
[2022-10-17 11:59] VITALS: BP 118/54
[2022-10-17] MEDS: SODIUM CHLORIDE 0.9% 1,000 ML IV SCH (12:00)
[2022-10-17 16:00] VITALS: BP 122/50
[2022-10-17 19:32] VITALS: BP 122/50
[2022-10-17 20:00] VITALS: BP 121/53
[2022-10-17] MEDS: SENNOSIDES/DOCUSATE SOD 8.6/50MG TABLET PO SCH (21:00)
[2022-10-18] VITALS: BP 128/56
[2022-10-18] MEDS: PANTOPRAZOLE SODIUM 40 MG/VIAL IV SCH (03:15)
[2022-10-18 04:00] VITALS: BP 124/52
[2022-10-18 08:00] VITALS: BP 132/62
[2022-10-18] MEDS: DOCUSATE SODIUM 250MG CAPSULE PO SCH (09:00)
[2022-10-18] MEDS: POLYETHYLENE GLYCOL 3350 (17GM) 1 DOSE PACK PO SCH (09:00)
[2022-10-18] MEDS: BICALUTAMIDE 50 MG TABLET PO SCH (09:00)
[2022-10-18] MEDS: HYDROCORTISONE ACETATE 25MG SUPP PR SCH (09:00)
[2022-10-18] MEDS: FINASTERIDE 5MG TABLET PO SCH (09:39)
== END 2022-10-18 12:30 | disposition home health service (06) | DRG 378 ==
LOC: ER 11:29 → MICUSO 22:36 → EDBEDREQTM 23:17 → EDBEDREQ 23:17 → EDBEDREQSVC 23:17 → 6EST 10-05 03:43
PROVIDERS: ADMIT Family Medicine Adult Medicine; ATTEND Family Medicine Adult Medicine
PROC: 30233N1 Transfusion of Nonautologous Red Blood Cells into Peripheral Vein, Percutaneous Approach (ICD-10-PCS; principal; 2022-10-18)
DX: K62.5 Hemorrhage of anus and rectum (principal); C79.51 Secondary malignant neoplasm of bone; C79.82 Secondary malignant neoplasm of genital organs; N39.0 Urinary tract infection, site not specified; K56.600 Partial intestinal obstruction, unspecified as to cause; E44.1 Mild protein-calorie malnutrition; D64.9 Anemia, unspecified; H26.9 Unspecified cataract; J44.9 Chronic obstructive pulmonary disease, unspecified; C61 Malignant neoplasm of prostate; E88.09 Other disorders of plasma-protein metabolism, not elsewhere classified; R31.0 Gross hematuria; N40.1 Benign prostatic hyperplasia with lower urinary tract symptoms; G62.9 Polyneuropathy, unspecified; K59.09 Other constipation; R19.00 Intra-abdominal and pelvic swelling, mass and lump, unspecified site; F14.10 Cocaine abuse, uncomplicated; Z68.24 Body mass index [BMI] 24.0-24.9, adult; Z85.46 Personal history of malignant neoplasm of prostate; Z90.79 Acquired absence of other genital organ(s); Z79.899 Other long term (current) drug therapy; Z87.891 Personal history of nicotine dependence; Z93.3 Colostomy status
CPT/HCPCS: 36415; 74177; 80048; 80053; 80076; 81003; 82378; 82607; 82728; 82746; 83540; 83550; 83605; 84153; 85025; 85044; 86850; 86870; 86900; 86920; 93970; 97110; 97116; 97162; 97166; 97530; 99285; A6261; C1893; C9113; J0696; J2270; J2765; J7030; J7060; P9016; Q9967; G0103